=== PATIENT | male | born 1975 | race Caucasian/White ===

== ENCOUNTER 2021-05-16 04:22 | Emergency (ER) | payer OTHER ==
--- OUTSIDE RECORDS SUMMARY | 2021-05-16 04:24 | XMS REPORT | Continuity of Care Document ---
:1975 Author Organization [facility] t Address [address] [place] [address] Care Team Providers Name Role Phone Doctor Unassigned, Name Attending Clinician Unavailable Charisse Linton Attending Clinician Anibal MANGLE TENDER CLOTH Attending Clinician Scott MANGLE TENDER CLOTH, F Attending Clinician Pcp, Does Not Have A Attending Clinician Harry VAZ, E Attending Clinician Problems This patient has no known problems. Allergies, Adverse Reactions, Alerts This patient has no known allergies or adverse reactions. Medications This patient has no known medications. Procedures This patient has no known procedures. Encounters Start End Encounter Admission Attending Care Care Encounter Source Date/Time Date/Time Type Type Clinicians Facility Department ID 2020-12-31 2020-12-31 Orders Doctor HERNANDEZ [id number] 00:00:00 00:00:00 Only UnassignedKE [id number] [facility] [id number] 2020-12-11 2020-12-12 Emergency Jean Marie Adams [facility] [id number] 21:36:00 00:30:00 Charisse Truong [id number] [place] [id number] [place] [id number] 2020-12-01 2020-12-01 [facility] [id number] 17:58:00 19:26:00 Blanca Truong [id number] [place] [id number] [place] [id number] 2020-12-01 2020-12-01 Orders Doctor HERNANDEZ [id number] 00:00:00 00:00:00 Only Unassigned, KE [id number] [facility] .[id number] [id number] 2020-07-27 2020-07-27 [facility] [id number] 00:09:00 01:47:00 Maximiliano Truong [id number] [place] [id number] [place] [id number] 2019-12-19 2019-12-19 Nurse MARY Pitts [id number] 00:00:00 00:00:00 Triage Patient KE [id number] Does Not HOSPITAL [id number] Have A [id number] 2019-12-19 2019-12-19 Nurse Viky Mcdonald [id number] 00:00:00 00:00:00 Triage E KE [id number] [facility]PITAL .[id number] [id number] Results This patient has no known results.
[2021-05-16 05:32] LABS: Absolute Lymphocytes (CBC) 0.9 K/uL (0.7-4.9); Basophils % 0.5 % (0-1.3); Hematocrit 46.4 % (39.6-49.0); Lymphocytes % 20.6 % (15.3-44.8); MPV 7.2 fL (7.6-11.3); RBC Red Blood Cell Count 5.46 M/uL (4.33-5.43)
[2021-05-16] MEDS ORDERED: ALBUTEROL INHALER 60 PUFF/8 GM IH ONE ×2 (05:37→05:47)
[2021-05-16] MEDS ORDERED: METHYLPREDNISOLONE 40 MG INJ ONE (05:37)
[2021-05-16] MEDS ORDERED: ACETAMINOPHEN 500 MG TAB ONE (05:37)
[2021-05-16] MEDS ORDERED: NA CHLORIDE 0.9% 3,000 ML ONE (05:38)
[2021-05-16 05:42] LABS: Protime INR 1.1
[2021-05-16 06:29] LABS: ALT/SGPT 46 U/L (12-78); AST/SGOT 45 U/L (15-37); Albumin 3.5 g/dL (3.4-5.0); Alkaline Phosphatase 48 U/L (45-117); Amylase 61 U/L (25-115); BUN Blood Urea Nitrogen 10 mg/dL (7-18); Bicarbonate 25 mmol/L (21-32); Bilirubin Direct 0.2 mg/dL (0-0.2); Bilirubin Total 0.4 mg/dL (0.2-1.0); Creatine Phosphokinase 390 U/L (39-308); Glucose Level 99 mg/dL (74-106); Lipase 242 U/L (73-393); Potassium 3.7 mmol/L (3.5-5.1); Protein, Total 7.4 g/dL (6.4-8.2); Sodium Level 136 mmol/L (136-145); Troponin (Emerg Dept Use Only) < 0.02 ng/mL (0.0-0.045)
[2021-05-16 06:30] LABS: CKMB Creatine Kinase MB < 1.0 ng/mL (1.0-3.6)
--- NOTE | 2021-05-16 07:17 | RAD REPORT ---
EXAM DESCRIPTION: CT - Chest For Pe Angio - 05/16/2021 7:02 am CLINICAL HISTORY: Shortness of breath COMPARISON: None. TECHNIQUE: Dynamically enhanced axial 3 mm thick images of the chest were obtained during administra tion of <100> mL Isovue 370 IV contrast. Coronal and oblique reconstruction images were generated and reviewed. Exam utilizes a protocol for optimal evaluation of pulmonary arterial tree. Maximum intensity projections 3D imaging was utilized All CT scans are performed using dose optimization technique as appropriate and may include automated exposure control or mA/KV adjustment according to patient size. FINDINGS: The opacification of pulmonary arteries is suboptimal. No gross pulmonary embolus seen. A thoracic aortic aneurysm is not noted. Bovine aorta A pleural effusion is not seen. A pericardial effusion is not seen. Minimal bilateral ground-glass opacities within the lungs. Fatty liver IMPRESSION: No gross evidence for a pulmonary embolism. Minimal bilateral ground-glass opacities within the lungs. This may represent a minimal bilateral Cov id pneumonia
--- NOTE | 2021-05-16 07:17 | RAD REPORT ---
EXAM DESCRIPTION: Anthony Single View05/16/2021 5:21 am CLINICAL HISTORY: Shortness of breath COMPARISON: none FINDINGS: The lungs are minimally hazy bilateral. The heart is normal size IMPRESSION: Lungs are minimally hazy bilaterally which may indicate a minimal pneumonia
[2021-05-16 08:04] LABS: Urine Blood Trace-lysed (Negative); Urine Glucose Negative (Negative); Urine Protein 1+ (Negative); Urine pH 5.5 (5.0-7.0)
[2021-05-16 09:01] LABS: Urine Bacteria <20 /HPF (NONE SEEN); Urine RBC <5 /HPF (NONE SEEN)
[2021-05-16] MEDS ORDERED: AZITHROMYCIN 250 MG TAB ONE (09:18)
[2021-05-16] MEDS ORDERED: ASPIRIN 81 MG CHEWABLE TABLET ONE (09:18)
[2021-05-16] MEDS ORDERED: CEFTRIAXONE/SWI 1gm 1 GM/10 ML SYR ONE (09:19)
[2021-05-16] MEDS ORDERED: FAMOTIDINE 20 MG TAB ONE (09:19)
--- NOTE | 2021-05-16 09:22 | ER ---
Nurse's Notes [facility] Name: Todd López Age: 45 yrs Sex: Male : 1975 Arrival Date: 05/16/2021 Time: 04:24 Bed 18 Private MD: Diagnosis: Pneumonia due to SARS-associated coronavirus;Coronavirus infection, unspecified;Fever, unspecified Presentation: 05/16 04:34 Chief complaint: Patient states: diagnosed with covid 2 days ago, reports shortness of kg breath, fever, diarrhea. Coronavirus screen: diarrhea, Client presents with at least one sign or symptom that may indicate coronavirus-19. Standard/surgical mask placed on the client. Provider contacted for isolation considerations. Ebola Screen: Patient negative for fever greater than or equal to 101.5 degrees Fahrenheit, and additional compatible Ebola Virus Disease symptoms Patient denies exposure to infectious person. Patient denies travel to an Ebola-affected area in the 21 days before illness onset. No symptoms or risks identified at this time. Initial Sepsis Screen: Does the patient meet any 2 criteria? HR > 90 bpm. No. Patient's initial sepsis screen is negative. Does the patient have a suspected source of infection? Yes: Productive cough/pneumonia. Risk Assessment: Do you want to hurt yourself or someone else? Patient reports no desire to harm self or others. Onset of symptoms was May 16, 2021. 04:34 Method Of Arrival: Wheelchair kg 04:34 Acuity: RENAE 3 kg Historical: - Allergies: 04:38 pine products; kg 04:38 Chocolate; kg 04:38 Kxfa-Cysnrp-Ozsy; kg 04:38 Latex, Natural Rubber; kg 04:38 nut.soy,wcgpkfg-RLC-rug-epa-in; kg - PMHx: 04:38 Asthma; ptsd; kg - Immunization history:: Client reports having NOT received the Covid vaccine. - Social history:: Smoking status: Patient denies any tobacco usage or history of. Screenin:05 Abuse screen: Denies threats or abuse. Denies injuries from another. Nutritional ms4 screening: No deficits noted. Tuberculosis screening: No symptoms or risk factors identified. Fall Risk None identified. Assessment: 06:04 Reassessment: Patient appears in no apparent distress at this time. No changes from ms4 previously documented assessment. Patient and/or family updated on plan of care and expected duration. Pain level reassessed. General: Appears in no apparent distress. Behavior is calm, cooperative. Pain: Denies pain. GI: Reports diarrhea. 07:00 General: Appears in no apparent distress. Behavior is calm, cooperative. Neuro: Level rb3 of Consciousness is awake, alert, obeys commands, Oriented to person, place, time, situation. Cardiovascular: Patient's skin is warm and dry. Respiratory: Airway is patent Respiratory effort is even, unlabored, Respiratory pattern is regular, symmetrical. 08:00 Reassessment: Patient appears in no apparent distress at this time. Neuro: Reports rb3 headache Was given Tylenol around 0520 this morning. 08:40 Reassessment: Waiting for Dr. Louie to speak with the pt before signing consent. rb3 09:00 Reassessment: Patient appears in no apparent distress at this time. Patient and/or rb3 family updated on plan of care and expected duration. Pain level reassessed. Patient is alert, oriented x 3, equal unlabored respirations, skin warm/dry/pink. 10:00 Reassessment: Patient appears in no apparent distress at this time. No changes from rb3 previously documented assessment. 11:00 Reassessment: Patient appears in no apparent distress at this time. Patient and/or rb3 family updated on plan of care and expected duration. Pain level reassessed. Patient is alert, oriented x 3, equal unlabored respirations, skin warm/dry/pink. Patient denies pain at this time. 12:00 Reassessment: Patient appears in no apparent distress at this time. No changes from rb3 previously documented assessment. 12:30 Reassessment: Patient appears in no apparent distress at this time. No signs of adverse rb3 reactions to the infusion. Vital Signs: 04:34 BP 124 / 73; Pulse 98; Resp 22; Temp 103.1(O); Pulse Ox 95% on R/A; Weight 108.86 kg; kg Height 5 ft. 8 in. (172.72 cm); Pain 6/10; 06:04 BP 123 / 61; Pulse 93; Resp 22; Pulse Ox 94% ; ms4 06:47 BP 118 / 85; Pulse 87; Resp 18; Temp 100; Pulse Ox 97% ; Pain 0/10; ms4 08:00 BP 119 / 64; Pulse 87; Resp 21; Temp 98.4; Pulse Ox 97% on R/A; rb3 09:00 BP 122 / 68; Pulse 76; Resp 19; Pulse Ox 95% ; rb3 10:00 BP 134 / 81; Pulse 75; Resp 20; Pulse Ox 97% ; rb3 11:00 BP 130 / 75; Pulse 67; Resp 18; Pulse Ox 97% ; rb3 12:00 BP 125 / 76; Pulse 73; Resp 19; Temp 98.4; Pulse Ox 96% on R/A; rb3 04:34 Body Mass Index 36.49 (108.86 kg, 172.72 cm) kg ED Course: 04:24 Patient arrived in ED. bp1 04:38 Triage completed. kg 04:38 Arm band placed on. kg 04:41 Emile Cleveland MD is Attending Physician. mh7 05:21 Chest Single View XRAY In Process Unspecified. EDMS 05:30 Inserted saline lock: 20 gauge in right forearm, using aseptic technique. Blood oe collected. 07:00 Patient has correct armband on for positive identification. Bed in low position. Call rb3 light in reach. Side rails up X 1. manager monitoring on. Pulse ox on. NIBP on. 07:02 CT Chest For PE Angio In Process Unspecified. EDMS 07:20 Robinson Hoffman, RN is Primary Nurse. em 07:38 Attending Physician role handed off by Emile Cleveland MD jose 07:38 Dima Louie MD is Attending Physician. jose 07:51 Alexandra Eubanks, RN is Primary Nurse. rb3 09:22 Josias Sanches MD is Referral Physician. jose 12:44 No provider procedures requiring assistance completed. IV discontinued, intact, rb3 bleeding controlled, No redness/swelling at site. Pressure dressing applied. Administered Medications: 05:35 Drug: Acetaminophen 1000 mg Route: PO; ms4 06:03 Follow up: Response: No adverse reaction ms4 05:35 Drug: SOLU-Medrol (methylPrednisoLONE) 80 mg Route: IVP; Site: right antecubital; ms4 06:03 Follow up: Response: No adverse reaction ms4 05:35 Drug: Albuterol HFA Inhaler 2 puffs Route: Inhalation; ms4 05:40 Drug: NS 0.9% (30 ml/kg) 30 ml/kg Route: IV; Rate: bolus; Site: right antecubital; ms4 08:04 Follow up: IV Status: Completed infusion rb3 09:00 Drug: Zithromax (azithromycin) 500 mg Route: PO; rb3 09:30 Follow up: Response: No adverse reaction rb3 09:00 Drug: Rocephin (cefTRIAXone) 1 grams Route: IV; Rate: per protocol; Site: right forearm;rb3 09:15 Follow up: Response: No adverse reaction; IV Status: Completed infusion rb3 09:00 Drug: Pepcid (famotidine) 40 mg Route: PO; rb3 09:30 Follow up: Response: No adverse reaction rb3 09:00 Drug: Aspirin Chewable Tablet 324 mg Route: PO; rb3 09:30 Follow up: Response: No adverse reaction rb3 10:10 Drug: REGEN-COV Dose Pack 120 mg/mL-120 mg/mL (EUA) 1 vials Route: IV; Rate: per iw protocol; Site: right forearm; 11:26 Follow up: IV Status: Completed infusion rb3 Outcome: 09:22 Discharge ordered by . [facility] 12:44 Patient left the ED. rb3 12:44 Discharged to home via wheelchair. rb3 12:44 Condition: stable 12:44 Discharge instructions given to patient, Instructed on discharge instructions, follow up and referral plans. medication usage, Demonstrated understanding of instructions, follow-up care, medications, Prescriptions given X x 5 Signatures: Dispatcher [employer] Dima Issa MD MD cha Munoz, Edgar RN Roberta Patton RN RN Christos Chou Brittany bp1 Holmes, Maurice, MD MD 7 Alexandra Eubanks RN RN rb3 Susan Unger RN RN kg Joyce Redmond RN RN ms4 Corrections: (The following items were deleted from the chart) 13:36 13:15 Patient left the ED. rb3 rb3 13:50 12:00 BP 125 / 76; Pulse 73bpm; Resp 19bpm; Pulse Ox 96% RA; rb3 rb3
--- NOTE | 2021-05-16 09:22 | EDPHYS ---
Physician Documentation [facility] Name: Todd López Age: 45 yrs Sex: Male : 1975 Arrival Date: 05/16/2021 Time: 04:24 Bed 18 Private MD: ED Physician Dima Louie HPI: 05/16 04:52 This 45 yrs old Male presents to ER via Wheelchair with complaints of Fever, mh7 Diarrhea, Shortness Of Breath. 04:52 The patient reports fever, not measured (subjective). mh7 04:52 Onset: The symptoms/episode began/occurred 5 day(s) ago. Modifying factors: there are mh7 no obvious modifying factors. Associated signs and symptoms: Pertinent positives: cough, that is dry, diarrhea, myalgias, shortness of breath, Pertinent negatives: abdominal pain, altered mental status, arthralgias, backache, chest pain, chills, pulling at ears, earache, headache, hemoptysis, nausea, night sweats, runny nose, sinus congestion, sinus drainage, skin rash, sore throat, swelling, vomiting. Severity of symptoms: At their worst the symptoms were moderate 2 day(s) ago, in the emergency department the symptoms are unchanged. Patient reports that he recently tested positive for Covid.. Historical: - Allergies: 04:38 pine products; kg 04:38 Chocolate; kg 04:38 Aktb-Askslf-Wqcn; kg 04:38 Latex, Natural Rubber; kg 04:38 nut.soy,kvbiszo-TKR-myn-epa-in; kg - PMHx: 04:38 Asthma; ptsd; kg - Immunization history:: Client reports having NOT received the Covid vaccine. - Social history:: Smoking status: Patient denies any tobacco usage or history of. ROS: 04:52 Eyes: Negative for injury, pain, redness, and discharge, ENT: Negative for injury, mh7 pain, and discharge, Neck: Negative for injury, pain, and swelling, Cardiovascular: Negative for chest pain, palpitations, and edema, Back: Negative for injury and pain, : Negative for injury, bleeding, discharge, and swelling, MS/Extremity: Negative for injury and deformity, Skin: Negative for injury, rash, and discoloration, Neuro: Negative for headache, weakness, numbness, tingling, and seizure, Psych: Negative for depression, anxiety, suicide ideation, homicidal ideation, and hallucinations, Allergy/Immunology: Negative for hives, rash, and allergies, Endocrine: Negative for neck swelling, polydipsia, polyuria, polyphagia, and marked weight changes, Hematologic/Lymphatic: Negative for swollen nodes, abnormal bleeding, and unusual bruising. Exam: 04:52 Head/Face: Normocephalic, atraumatic. Eyes: Pupils equal round and reactive to light, mh7 extra-ocular motions intact. Lids and lashes normal. Conjunctiva and sclera are non-icteric and not injected. Cornea within normal limits. Periorbital areas with no swelling, redness, or edema. Neck: Trachea midline, no thyromegaly or masses palpated, and no cervical lymphadenopathy. Supple, full range of motion without nuchal rigidity, or vertebral point tenderness. No Meningismus. Chest/axilla: Normal chest wall appearance and motion. Nontender with no deformity. No lesions are appreciated. Cardiovascular: Regular rate and rhythm with a normal S1 and S2. No gallops, murmurs, or rubs. Normal PMI, no JVD. No pulse deficits. 04:52 Abdomen/GI: Soft, non-tender, with normal bowel sounds. No distension or tympany. No guarding or rebound. No evidence of tenderness throughout. Back: No spinal tenderness. No costovertebral tenderness. Full range of motion. Skin: Warm, dry with normal turgor. Normal color with no rashes, no lesions, and no evidence of cellulitis. MS/ Extremity: Pulses equal, no cyanosis. Neurovascular intact. Full, normal range of motion. Neuro: Awake and alert, GCS 15, oriented to person, place, time, and situation. Cranial nerves II-XII grossly intact. Motor strength 5/5 in all extremities. Sensory grossly intact. Cerebellar exam normal. Normal gait. Psych: Awake, alert, with orientation to person, place and time. Behavior, mood, and affect are within normal limits. 04:52 Constitutional: The patient appears in no acute distress, alert, awake, uncomfortable. 04:52 Respiratory: the patient does not display signs of respiratory distress, Respirations: normal, Breath sounds: rhonchi, that are mild, are scattered, Respiratory rate: 20 08:18 ECG was reviewed by the Attending Physician. [facility] Vital Signs: 04:34 BP 124 / 73; Pulse 98; Resp 22; Temp 103.1(O); Pulse Ox 95% on R/A; Weight 108.86 kg; kg Height 5 ft. 8 in. (172.72 cm); Pain 6/10; 06:04 BP 123 / 61; Pulse 93; Resp 22; Pulse Ox 94% ; ms4 06:47 BP 118 / 85; Pulse 87; Resp 18; Temp 100; Pulse Ox 97% ; Pain 0/10; ms4 08:00 BP 119 / 64; Pulse 87; Resp 21; Temp 98.4; Pulse Ox 97% on R/A; rb3 09:00 BP 122 / 68; Pulse 76; Resp 19; Pulse Ox 95% ; rb3 10:00 BP 134 / 81; Pulse 75; Resp 20; Pulse Ox 97% ; rb3 11:00 BP 130 / 75; Pulse 67; Resp 18; Pulse Ox 97% ; rb3 12:00 BP 125 / 76; Pulse 73; Resp 19; Temp 98.4; Pulse Ox 96% on R/A; rb3 04:34 Body Mass Index 36.49 (108.86 kg, 172.72 cm) kg MDM: 07:17 Transition of care: After a detail discussion of the patient's case, care is [facility] transferred to Dima Louie MD. 07:39 Patient medically screened. [facility] 08:07 Differential diagnosis: viral Infection, bacterial infection, URI, bronchitis, jose pneumonia UTI. Data reviewed: vital signs, nurses notes, lab test result(s), EKG, radiologic studies, CT scan, plain films. Data interpreted: school bus monitor: rate is 105 beats/min, rhythm is regular. Test interpretation: by ED physician or midlevel provider: ECG, plain radiologic studies. Counseling: I had a detailed discussion with the patient and/or guardian regarding: the historical points, exam findings, and any diagnostic results supporting the discharge/admit diagnosis, lab results, radiology results, the need for outpatient follow up, for definitive care, a family practitioner, a clinical rn liaison. 05/16 04:43 Order name: Amylase, Serum [facility] 05/16 04:43 Order name: Basic Metabolic Panel [facility] 05/16 04:43 Order name: Blood Culture Adult (2) [facility] 05/16 04:43 Order name: C-Reactive Protein [facility] 05/16 04:43 Order name: CBC with Diff [facility] 05/16 04:43 Order name: CPK [facility] 05/16 04:43 Order name: Ckmb [facility] 05/16 04:43 Order name: LFT's [facility] 05/16 04:43 Order name: Lactate [facility] 05/16 04:43 Order name: Lipase [facility] 05/16 04:43 Order name: Procalcitonin; Complete Time: 07:04 [facility] 05/16 04:43 Order name: Protime (+inr); Complete Time: 05:47 [facility] 05/16 04:43 Order name: Ptt, Activated; Complete Time: 05:47 [facility] 05/16 04:43 Order name: Troponin (emerg Dept Use Only); Complete Time: 06:32 [facility] 05/16 04:43 Order name: Urine Microscopic Only [facility] 05/16 04:43 Order name: Chest Single View XRAY; Complete Time: 07:39 [facility] 05/16 04:43 Order name: Amylase; Complete Time: 06:32 EDMS 05/16 04:43 Order name: Basic Metabolic Panel; Complete Time: 06:32 EDMS 05/16 04:44 Order name: Blood Culture [facility] 05/16 04:44 Order name: C-Reactive Protein; Complete Time: 06:32 EDMS 05/16 04:44 Order name: CBC with Automated Diff; Complete Time: 05:40 MS 05/16 04:44 Order name: Creatine Phosphokinase; Complete Time: 06:32 EDMS 05/16 04:44 Order name: CKMB Creatine Kinase MB; Complete Time: 06:32 EDMS 05/16 04:44 Order name: Liver (Hepatic) Function; Complete Time: 06:32 EDMS 05/16 04:44 Order name: Lactate [facility] 05/16 04:44 Order name: Lipase; Complete Time: 06:32 EDMS 05/16 06:33 Order name: CT Chest For PE Angio; Complete Time: 07:39 7 05/16 08:04 Order name: Urine Dipstick-Ancillary; Complete Time: 08:04 EDMS 05/16 04:43 Order name: Accucheck; Complete Time: 06:03 [facility] 05/16 04:43 Order name: Cardiac monitoring; Complete Time: 05:40 [facility] 05/16 04:43 Order name: EKG - Nurse/Tech; Complete Time: 05:49 05/16 04:43 Order name: IV Saline Lock - Large Bore; Complete Time: 05:40 05/16 04:43 Order name: Labs collected and sent; Complete Time: 05:40 05/16 04:43 Order name: O2 Per Protocol; Complete Time: 05:40 05/16 04:43 Order name: O2 Sat Monitoring; Complete Time: 05:40 [facility] 05/16 04:43 Order name: Urine Dipstick-Ancillary (obtain specimen); Complete Time: 08:15 mh7 EC:18 Rate is 91 beats/min. Rhythm is regular. QRS [place] is Normal. [place] interval is normal. QRS jose interval is normal. QT interval is normal. No Q waves. T waves are Normal. No ST changes noted. Clinical impression: NSR w/ Non-specific ST/T Changes and No evidence of ischemia. Interpreted by me. Reviewed by me. Administered Medications: 05:35 Drug: Acetaminophen 1000 mg Route: PO; ms4 06:03 Follow up: Response: No adverse reaction ms4 05:35 Drug: SOLU-Medrol (methylPrednisoLONE) 80 mg Route: IVP; Site: right antecubital; ms4 06:03 Follow up: Response: No adverse reaction ms4 05:35 Drug: Albuterol HFA Inhaler 2 puffs Route: Inhalation; ms4 05:40 Drug: NS 0.9% (30 ml/kg) 30 ml/kg Route: IV; Rate: bolus; Site: right antecubital; ms4 08:04 Follow up: IV Status: Completed infusion rb3 09:00 Drug: Zithromax (azithromycin) 500 mg Route: PO; rb3 09:30 Follow up: Response: No adverse reaction rb3 09:00 Drug: Rocephin (cefTRIAXone) 1 grams Route: IV; Rate: per protocol; Site: right forearm;rb3 09:15 Follow up: Response: No adverse reaction; IV Status: Completed infusion rb3 09:00 Drug: Pepcid (famotidine) 40 mg Route: PO; rb3 09:30 Follow up: Response: No adverse reaction rb3 09:00 Drug: Aspirin Chewable Tablet 324 mg Route: PO; rb3 09:30 Follow up: Response: No adverse reaction rb3 10:10 Drug: REGEN-COV Dose Pack 120 mg/mL-120 mg/mL (EUA) 1 vials Route: IV; Rate: per iw protocol; Site: right forearm; 11:26 Follow up: IV Status: Completed infusion rb3 Disposition Summary: 05/16/21 09:22 Discharge Ordered Location: Home [facility] Problem: new jose Symptoms: have improved jose Condition: Stable jose Diagnosis - Pneumonia due to SARS-associated coronavirus jose - Coronavirus infection, unspecified jose - Fever, unspecified jose Followup: jose - With: Private Physician - When: 2 - 3 days - Reason: Recheck today's complaints, Continuance of care, Re-evaluation by your physician Followup: jose - With: - When: 2 - 3 days - Reason: Recheck today's complaints, Re-evaluation by your physician Discharge Instructions: - Fever, Adult jose - Upper Respiratory Infection, Adult [facility] - Discharge Summary Sheet em - Viral Respiratory Infection, Kemr-Ud-Feuh [facility] - Aspirin and Your Heart [facility] - COVID-19 [facility] Forms: - Medication Reconciliation Form jose - Thank You Letter [facility] - Antibiotic Education [facility] - SBAR form em - Prescription Opioid Use [facility] Prescriptions: - albuterol sulfate 90 mcg/actuation Inhalation HFA aerosol inhaler - inhale 2 puff by INHALATION route every 4-6 hours; 1 Pump; Refills: 0, Product [facility] Selection Permitted - dexamethasone 2 mg Oral tablet - take 1 tablet by ORAL route 3 times per day; 15 tablet; Refills: 0, Product [facility] Selection Permitted - ivermectin 3 mg Oral tablet - take 4 tablet by ORAL route once daily; 20 tablet; Refills: 0, Product [facility] Selection Permitted - Pepcid 20 mg Oral Tablet - take 1 tablet by ORAL route every 12 hours for 15 days; 30 tablet; Refills: 0, [facility] Product Selection Permitted - Zithromax 500 mg Oral Tablet - take 1 tablet by ORAL route once daily for 5 days; 5 tablet; Refills: 0, [facility] Product Selection Permitted Signatures: Dispatcher [employer] Dima Issa MD MD cha Williams, Irene RN Emile Lyons MD MD mh7 Alexandra Eubanks RN RN rb3 Susan Unger RN RN kg Joyce Redmond RN RN ms4
[2021-05-16] MEDS ORDERED: CASIRIVIMAB/IMDEVIMAB 10 ML in NA CHLORIDE 0.9% 250 ML IV ONE (09:45)
[2021-05-16 13:24] VITALS: O2SAT 97
[2021-05-16 13:25] VITALS: BP 119/64; TEMP 98.4
== END 2021-05-16 13:15 | disposition home or self-care (01) ==
LOC: ER 04:22
DX: U07.1 COVID-19 (principal); J12.82 Pneumonia due to coronavirus disease 2019; Z91.012 Allergy to eggs; Z91.018 Allergy to other foods; Z91.040 Latex allergy status; Z91.048 Other nonmedicinal substance allergy status
CPT/HCPCS: 87040 ×2; 85025; 80048; 36415; 82150; 82550; 85610; 80076; 83605; 85730; 84484; 82553; 83690; 84145; 86140; 71275; 71045; 99285; Q9967; J0696; J7050; J7030; J2920; 81003; 81015

== ENCOUNTER 2023-08-29 10:54 | Emergency (ER) | payer OTHER ==
--- OUTSIDE RECORDS SUMMARY | 2023-08-29 10:59 | XMS REPORT | Continuity of Care Document ---
:1975 Author Organization [facility] t Address [address] [place] [address] Care Team Providers Name Role Phone [facility], [facility] ADMIN MED Primary Care Physician Unavailable Doctor Unassigned, Boyce Attending Clinician Unavailable Jean Marie Linton Attending Clinician Jean Marie MORTON Attending Clinician Unavailable Brown Velazquez Attending Clinician BROWN CHESTER Attending Clinician Unavailable Jordan Myrick Attending Clinician JORDAN PEREZ Attending Clinician Unavailable Pcp, Patient Does Not Have A Attending Clinician [id number] [phone] Viky Mcdonald RN Attending Clinician Jean Marie MORTON Admitting Clinician Unavailable Payers Payer Name Policy Type Policy Number Effective Date Expiration Date S ource Problems Condition Condition Condition Status Onset Resolution Last Treating Co mments Source Name Details Category Date Date Treatment Clinician Date No known No known Disease Unive rs active active ity of problems problems [facility] Allergies, Adverse Reactions, Alerts Allergy Allergy Status Severity Reaction(s) Onset Inactive Treating Comm ents Source Name Type Date Date Clinician EGG DRUG Active ITCHING Univers INGREDI 04-02 ity of 00:00: [address] Egg Propensi Active Itching 2018-0 Univers ty to 7-08 ity of adverse 00:00: [place] reaction 00 Medical s Branch MOLD DRUG Active Swelling 2016- Univers INGREDI 0-15 ity of 00:00: [place] 00 Medical Branch Mold Propensi Active Swelling 2016- Univer s ty to 0-15 ity of adverse 00:00: [place] reaction 00 Medical s Branch CHOCOLAT DRUG Active Hives 2015- Univers E FLAVOR INGREDI 8-07 ity of 00:00: [place] 00 Medical Branch LATEX DRUG Active Hives 2015-0 Univers INGREDI 8-07 ity of 00:00: [place] 00 Medical Branch TREE Food Active SOB 2015- Univers NUTS 8-07 ity of 00:00: [place] 00 Medical Branch Chocolat Propensi Active Hives 2015-0 Univer s e Flavor ty to 8-07 ity of adverse 00:00: [place] reaction 00 Medical s Branch Latex Propensi Active Hives 2015- Univers ty to 8-07 ity of adverse 00:00: [place] reaction Medical s Branch Tree Propensi Active Shortness of Un rafaela Nuts ty to Breath 8-07 ity of adverse 00:00: [place] reaction 00 [facility] Social History Social Habit Start Date Stop Date Quantity Comments Source Exposure to Not sure [facility] SARS-CoV-2 (event) [facility] Sex Assigned At [birth year] [facility] 00:00:00 00:00:00 [facility] Smoking Status Start Date Stop Date Source Unknown if ever smoked [facility] Medications Ordered Filled Start Stop Current Ordering Indication Dosage Frequency Signature Comments Components Source Medication Medication Date Date Medication? Clinician (SIG) Name Name naproxen Yes [id number] 500mg Take 1 Univers (NAPROSYN) 3-19 9107 tablet by ity of 500 mg 00:00: mouth 2 [place] tablet 00 (two) Medical times [place] daily with meals. naproxen Yes [id number] 500mg Take 1 Univers (NAPROSYN) 3-19 9107 tablet by ity of 500 mg 00:00: mouth 2 [place] tablet 00 (two) Medical times [place] daily with meals. HYDROcodone 2020- No 1{tbl} 1 tablet, Univers -acetaminop 12-02-09 Oral, ity of hen (NORCO 01:30: 00:55 ONCE, 1 [place] as 5) 5-325 mg 00 :00 dose, Mon Med ical tablet 1 12/01/20 at Branch tablet 1930, ABIODUN acetaminoph 2020- No 4647 1{tbl} Take 1 U nivers en-codeine 3-08 03-12 tablet by ity of (TYLENOL-CO 00:00: 05:59 [place] DE[place] #3) 00 :00 every 4 Medical 300-30 mg (four) Branch tablet hours as needed for Pain (scale 1-3) or Pain (scale 7-10) for up to 3 days. Indication s: acute pain HYDROcodone 2019-09- No 1{tbl} 1 tablet, Univers -acetaminop 09-26 Oral, ity of hen (NORCO) 08:30: 06:28 [place]CE[place] 1 [place] 10-325 mg 00 :00 dose, Sun Medic al tablet 1 07/27/20 at [facility] tablet 0230, Routine acetaminoph 2019-09- No 1000mg 1,000 mg, Univers en 09-26 Oral, ity of (TYLENOL) 06:45: 05:39 ONCE, 1 [place] tablet [place] :[place] dose, [place] [facility] 1,000 mg 07/27/20 at [facility] h 0145, Routine traMADoL 50 2019-09 Yes 4647 50mg Take 1 Univ ers mg tablet -01 tablet by ity o f 00:00: mouth [place] 00 every 6 Medical (six) Branch hours as needed for Pain (scale 7-10). Indication s: acute pain ibuprofen 2019-09 Yes [id number] 800mg Take 1 Univers 800 mg 1-01 tablet by ity of tablet 00:00: mouth [place] 00 every 6 Medical (six) Branch hours as needed for Pain (scale 4-6). traMADoL 50 2019-09 Yes [id number] 50mg Take 1 Univ ers mg tablet 1-01 tablet by ity o f 00:00: mouth [place] 00 every 6 Medical (six) Branch hours as needed for Pain (scale 7-10). Indication s: acute pain ibuprofen 2019-09 Yes [id number] 800mg Take 1 Univers 800 mg -01 tablet by ity of tablet 00:00: mouth [place] 00 every 6 Medical (six) Branch hours as needed for Pain (scale 4-6). traMADoL 50 2019- Yes 4647 50mg Take 1 Univ ers mg tablet 1-01 tablet by ity o f 00:00: mouth [place] 00 every 6 Medical (six) Branch hours as needed for Pain (scale 7-10). Indication s: acute pain ibuprofen 2019-09 Yes [id number] 800mg Take 1 Univers 800 mg 1-01 tablet by ity of tablet 00:00: mouth [place] 00 every 6 Medical (six) Branch hours as needed for Pain (scale 4-6). traMADoL 50 2019-09 Yes 4647 50mg Take 1 Univ ers mg tablet 1-01 tablet by ity o f 00:00: mouth [place] 00 every 6 Medical (six) Branch hours as needed for Pain (scale 7-10). Indication s: acute pain ibuprofen 2019-09 Yes [id number] 800mg Take 1 Univers 800 mg 1-01 tablet by ity of tablet 00:00: mouth [place] 00 every 6 Medical (six) Branch hours as needed for Pain (scale 4-6). traMADoL 50 2019-09 Yes [id number] 50mg Take 1 Univ ers mg tablet 1-01 tablet by ity o f 00:00: mouth [place] 00 every 6 Medical (six) Branch hours as needed for Pain (scale 7-10). Indication s: acute pain ibuprofen 2019-09 Yes [id number] 800mg Take 1 Univers 800 mg 1-01 tablet by ity of tablet 00:00: mouth [place] 00 every 6 Medical (six) Branch hours as needed for Pain (scale 4-6). albuterol 2020-0 Yes [id number] 2.5mg Inhale 3 Univers 2.5 mg /3 3-25 mL every 4 ity of mL (0.083 00:00: (four) [place] %) 00 hours as Medical nebulizer needed for Bran ch solution Wheezing, Shortness of Breath, Bronchospa sm or Chest tightness. albuterol 2020-0 Yes [id number] 2.5mg Inhale 3 Univers 2.5 mg /3 3-25 mL every 4 ity of mL (0.083 00:00: (four) [place] %) 00 hours as Medical nebulizer needed for Bran ch solution Wheezing, Shortness of Breath, Bronchospa sm or Chest tightness. albuterol 2020-0 Yes [id number] 2.5mg Inhale 3 Univers 2.5 mg /3 3-25 mL every 4 ity of mL (0.083 00:00: (four) [place] %) 00 hours as Medical nebulizer needed for Bran ch solution Wheezing, Shortness of Breath, Bronchospa sm or Chest tightness. albuterol 2020-0 Yes [id number] 2.5mg Inhale 3 Univers 2.5 mg /3 3-25 mL every 4 ity of mL (0.083 00:00: (four) [place] %) 00 hours as Medical nebulizer needed for Bran ch solution Wheezing, Shortness of Breath, Bronchospa sm or Chest tightness. albuterol 2020-0 Yes [id number] 2.5mg Inhale 3 Univers 2.5 mg /3 3-25 mL every 4 ity of mL (0.083 00:00: (four) [place] %) 00 hours as Medical nebulizer needed for Bran ch solution Wheezing, Shortness of Breath, Bronchospa sm or Chest tightness. albuterol 2020-0 Yes [id number] 2.5mg Inhale 3 Univers 2.5 mg /3 3-25 mL every 4 ity of mL (0.083 00:00: (four) [place] %) 00 hours as Medical nebulizer needed for Bran ch solution Wheezing, Shortness of Breath, Bronchospa sm or Chest tightness. ibuprofen Yes [id number] 800mg Take 1 Un rafaela 800 mg 4-17 tablet by ity of tablet 00:00: mouth [place] 00 every 8 Medical (eight) Branch hours. neomycin-po Yes [id number] 3[drp] Place 3 Univers lymyxin-hyd 4-17 Drops in ity of rocortisone 00:00: left ear 4 [place] 3.5-10,000- 00 (four) Medica l 1 times Branch mg/mL-unit/ daily. mL-% otic susp neomycin-po Yes [id number] 3[drp] Place 3 Univers lymyxin-hyd 4-17 Drops in ity of rocortisone 00:00: right ear [place] 3.5-10,000- 00 4 (four) Medi trevor 1 times Branch mg/mL-unit/ daily. mL-% otic susp ibuprofen Yes [id number] 800mg Take 1 Un rafaela 800 mg 4-17 tablet by ity of tablet 00:00: mouth [place] 00 every 8 Medical (eight) Branch hours. neomycin-po 2019-0 Yes [id number] 3[drp] Place 3 Univers lymyxin-hyd 4-17 Drops in ity of rocortisone 00:00: left ear 4 [place] 3.5-10,000- 00 (four) Medica l 1 times Branch mg/mL-unit/ daily. mL-% otic susp neomycin-po 2018- Yes [id number] 3[drp] Place 3 Univers lymyxin-hyd 4-17 Drops in ity of rocortisone 00:00: right ear [place] 3.5-10,000- 00 4 (four) Medi trevor 1 times Branch mg/mL-unit/ daily. mL-% otic susp ibuprofen 2018- Yes [id number] 800mg Take 1 Un rafaela 800 mg 4-17 tablet by ity of tablet 00:00: mouth [place] 00 every 8 Medical (eight) Branch hours. neomycin-po 2018-0 Yes [id number] 3[drp] Place 3 Univers lymyxin-hyd 4-17 Drops in ity of rocortisone 00:00: left ear 4 [place] 3.5-10,000- 00 (four) Medica l 1 times Branch mg/mL-unit/ daily. mL-% otic susp neomycin-po 2018- Yes [id number] 3[drp] Place 3 Univers lymyxin-hyd 4-17 Drops in ity of rocortisone 00:00: right ear [place] 3.5-10,000- 00 4 (four) Medi trevor 1 times Branch mg/mL-unit/ daily. mL-% otic susp ibuprofen 2018-0 Yes [id number] 800mg Take 1 Un rafaela 800 mg 4-17 tablet by ity of tablet 00:00: mouth [place] 00 every 8 Medical (eight) Branch hours. neomycin-po 2019-0 Yes [id number] 3[drp] Place 3 Univers lymyxin-hyd 4-17 Drops in ity of rocortisone 00:00: left ear 4 [place] 3.5-10,000- 00 (four) Medica l 1 times Branch mg/mL-unit/ daily. mL-% otic susp amoxicillin 2019-0 Yes [id number] 500mg Take 1 Univers 500 mg 4-17 capsule by ity of capsule 00:00: mouth 3 [place] 00 (three) Medical times Branch daily. neomycin-po 2019-0 Yes [id number] 3[drp] Place 3 Univers lymyxin-hyd 4-17 Drops in ity of rocortisone 00:00: right ear [place] 3.5-,000- 00 4 (four) Medi trevor 1 times Branch mg/mL-unit/ daily. mL-% otic susp ibuprofen 2018- Yes [id number] 800mg Take 1 Un ra[place]ael[place] 800 mg 4-17 tablet by ity of tablet 00:00: mouth [place] 00 every 8 Medical (eight) Branch hours. neomycin-po 2019-0 Yes [id number] 3[drp] Place 3 Univers lymyxin-hyd 4-17 Drops in ity of rocortisone 00:00: left ear 4 [place] 3.5-,- (four) Medica l 1 times Branch mg/mL-unit/ daily. mL-% otic susp amoxicillin Yes [id number] 500mg Take 1 Univers 500 mg 4-17 capsule by ity of capsule 00:00: mouth 3 [place] 00 (three) Medical times Branch daily. neomycin-po 2018- Yes [id number] 3[drp] Place 3 Univers lymyxin-hyd 4-17 Drops in ity of rocortisone 00:00: right ear [place] 3.5-,- 00 4 (four) Medi trevor 1 times Branch mg/mL-unit/ daily. mL-% otic susp ibuprofen 2018-0 Yes [id number] 800mg Take 1 Un ra[place] 800 mg 4-17 tablet by ity of tablet 00:00: mouth every 8 Medical (eight) Branch hours. neomycin-po 2018-0 Yes [id number] 3[drp] Place 3 Univers lymyxin-hyd 4-17 Drops in ity of rocortisone 00:00: left ear 4 [place] 3.5-,000- 00 (four) Medica l 1 times Branch mg/mL-unit/ daily. mL-% otic susp neomycin-po 2018-0 Yes [id number] 3[drp] Place 3 Univers lymyxin-hyd 4-17 Drops in ity of rocortisone 00:00: right ear [place] 3.5-,000- 00 4 (four) Medi trevor 1 times Branch mg/mL-unit/ daily. mL-% otic susp ibuprofen 2019- Yes [id number] 800mg Take 1 Un [place] 800 mg 4-17 tablet by ity of tablet 00:00: mouth [place] 00 every 8 Medical (eight) Branch hours. neomycin-po 2019-0 Yes [id number] 3[drp] Place 3 Univers lymyxin-hyd 4-17 Drops in ity of rocortisone 00:00: left ear 4 [place] 3.5-10,000- 00 (four) Medica l 1 times Branch mg/mL-unit/ daily. mL-% otic susp neomycin-po 2018- Yes [id number] 3[drp] Place 3 Univers lymyxin-hyd 4-17 Drops in ity of rocortisone 00:00: right ear [place] 3.5-10,000- 00 4 (four) Medi trevor 1 times Branch mg/mL-unit/ daily. mL-% otic susp ibuprofen 2018- Yes [id number] 800mg Take 1 Un [place] 800 mg 4-17 tablet by ity of tablet 00:00: mouth [place] 00 every 8 Medical (eight) Branch hours. neomycin-po 2018-0 Yes [id number] 3[drp] Place 3 Univers lymyxin-hyd 4-17 Drops in ity of rocortisone 00:00: left ear 4 [place] 3.5-10,000- 00 (four) Medica l 1 times Branch mg/mL-unit/ daily. mL-% otic susp neomycin-po 2018- Yes [id number] 3[drp] Place 3 Univers lymyxin-hyd 4-17 Drops in ity of rocortisone 00:00: right ear [place] 3.5-10,000- 00 4 (four) Medi trevor 1 times Branch mg/mL-unit/ daily. mL-% otic susp traMADOL 2018-0 Yes 50mg Take 1 Univers (ULTRAM) 50 7-08 tablet by ity of mg tablet 00:00: mouth [place] 00 every 6 Medical (six) Branch hours as needed for Pain (scale 4-6). traMADOL 2018-0 Yes 50mg Take 1 Univers (ULTRAM) 50 7-08 tablet by ity of mg tablet 00:00: mouth [place] 00 every 6 Medical (six) Branch hours as needed for Pain (scale 4-6). traMADOL 2018-0 Yes 50mg Take 1 Univers (ULTRAM) 50 7-08 tablet by ity of mg tablet 00:00: mouth [place] 00 every 6 Medical (six) Branch hours as needed for Pain (scale 4-6). traMADOL 2018-0 Yes 50mg Take 1 Univers (ULTRAM) 50 7-08 tablet by ity of mg tablet 00:00: mouth [place] 00 every 6 Medical (six) Branch hours as needed for Pain (scale 4-6). traMADOL 2018-0 Yes 50mg Take 1 Univers (ULTRAM) 50 7-08 tablet by ity of mg tablet 00:00: mouth [place] 00 every 6 Medical (six) Branch hours as needed for Pain (scale 4-6). traMADOL 2018-0 Yes 50mg Take 1 Univers (ULTRAM) 50 7-08 tablet by ity of mg tablet 00:00: mouth [place] 00 every 6 Medical (six) Branch hours as needed for Pain (scale 4-6). traMADOL 2018-0 Yes 50mg Take 1 Univers (ULTRAM) 50 7-08 tablet by ity of mg tablet 00:00: mouth [place] 00 every 6 Medical (six) Branch hours as needed for Pain (scale 4-6). traMADOL 2018-0 Yes 50mg Take 1 Univers (ULTRAM) 50 7-08 tablet by ity of mg tablet 00:00: mouth [place] 00 every 6 Medical (six) Branch hours as needed for Pain (scale 4-6). benzonatate 2016-09 Yes 200mg Take 1 Uni vers 200 mg 0-15 capsule by ity of capsule 00:00: mouth 3 [place] 00 (three) Medical times Branch daily as needed for Cough. albuterol 2016-09 Yes 2{puff} Inhale 2 U nivers 90 0-15 Puffs ity of mcg/actuati 00:00: every 4 [place] as on inhaler 00 (four) Medical hours as Branch needed for Wheezing or Shortness of Breath. benzonatate 2016-09 Yes 200mg Take 1 Uni vers 200 mg 0-15 capsule by ity of capsule 00:00: mouth 3 [place] 00 (three) Medical times Branch daily as needed for Cough. albuterol 2016-09 Yes 2{puff} Inhale 2 U nivers 90 0-15 Puffs ity of mcg/actuati 00:00: every 4 [place] as on inhaler 00 (four) Medical hours as Branch needed for Wheezing or Shortness of Breath. benzonatate 2016-09 Yes 200mg Take 1 Uni vers 200 mg 0-15 capsule by ity of capsule 00:00: mouth 3 (three) Medical times Branch daily as needed for Cough. albuterol 2016-09 Yes 2{puff} Inhale 2 U nivers 90 0-15 Puffs ity of mcg/actuati 00:00: every 4 [place] as on inhaler 00 (four) Medical hours as Branch needed for Wheezing or Shortness of Breath. azithromyci 2016-09 Yes 250mg Take 1 Uni vers n 250 mg 0-15 tablet by ity of tablet 00:00: mouth [place] 00 daily. Medical Branch benzonatate 2016-09 Yes 200mg Take 1 Uni vers 200 mg 0-15 capsule by ity of capsule 00:00: mouth 3 (three) Medical times Branch daily as needed for Cough. albuterol 2016-09 Yes 2{puff} Inhale 2 U nivers 90 0-15 Puffs ity of mcg/actuati 00:00: every 4 [place] as on inhaler 00 (four) Medical hours as Branch needed for Wheezing or Shortness of Breath. albuterol 2016-09 Yes 2.5mg Inhale 3 Uni vers 2.5 mg /3 0-15 mL every 4 ity of mL (0.083 00:00: (four) [place] %) 00 hours as Medical nebulizer needed for Bran ch solution Wheezing or Shortness of Breath. azithromyci 2016-09 Yes 250mg Take 1 Uni vers n 250 mg 0-15 tablet by ity of tablet 00:00: mouth 00 daily. Medical Branch benzonatate 2016-09 Yes 200mg Take 1 Uni vers 200 mg 0-15 capsule by ity of capsule 00:00: mouth 3 (three) Medical times Branch daily as needed for Cough. albuterol 2016-09 Yes 2{puff} Inhale 2 U nivers 90 0-15 Puffs ity of mcg/actuati 00:00: every 4 [place] as on inhaler 00 (four) Medical hours as Branch needed for Wheezing or Shortness of Breath. albuterol 2016-09 Yes 2.5mg Inhale 3 Uni vers 2.5 mg /3 0-15 mL every 4 ity of mL (0.083 00:00: (four) [place] %) 00 hours as Medical nebulizer needed for Bran ch solution Wheezing or Shortness of Breath. benzonatate 2016-09 Yes 200mg Take 1 Uni vers 200 mg 0-15 capsule by ity of capsule 00:00: mouth 3 (three) Medical times Branch daily as needed for Cough. albuterol 2016-09 Yes 2{puff} Inhale 2 U nivers 90 0-15 Puffs ity of mcg/actuati 00:00: every 4 [place] as on inhaler 00 (four) Medical hours as Branch needed for Wheezing or Shortness of Breath. benzonatate 2016-09 Yes 200mg Take 1 Uni vers 200 mg 0-15 capsule by ity of capsule 00:00: mouth 3 00 (three) Medical times Branch daily as needed for Cough. albuterol 2016-09 Yes 2{puff} Inhale 2 U nivers 90 0-15 Puffs ity of mcg/actuati 00:00: every 4 [place] as on inhaler 00 (four) Medical hours as Branch needed for Wheezing or Shortness of Breath. benzonatate 2016-09 Yes 200mg Take 1 Uni vers 200 mg 0-15 capsule by ity of capsule 00:00: mouth 3 (three) Medical times Branch daily as needed for Cough. albuterol 2016-09 Yes 2{puff} Inhale 2 U nivers 90 0-15 Puffs ity of mcg/actuati 00:00: every 4 [place] as on inhaler 00 (four) Medical hours as Branch needed for Wheezing or Shortness of Breath. ciprofloxac Yes 4[drp] Place 4 U nivers in-dexameth 8-07 Drops in ity of asone 00:00: left ear 2 [place] (CIPRODEX) 00 (two) Medical 0.3-0.1 % times Branch otic drops daily. traMADOL Yes 50mg Take 1 Univers (ULTRAM) 50 8-07 tablet by ity of mg tablet 00:00: mouth [place] 00 every 6 Medical (six) Branch hours as needed for Pain (scale 7-10). ciprofloxac 2015- Yes 4[drp] Place 4 U nivers in-dexameth 8-07 Drops in ity of asone 00:00: left ear 2 [place] (CIPRODEX) 00 (two) Medical 0.3-0.1 % times Branch otic drops daily. traMADOL 2016-0 Yes 50mg Take 1 Univers (ULTRAM) 50 8-07 tablet by ity of mg tablet 00:00: mouth [place] 00 every 6 Medical (six) Branch hours as needed for Pain (scale 7-10). ciprofloxac 2016-0 Yes 4[drp] Place 4 U nivers in-dexameth 8-07 Drops in ity of asone 00:00: left ear 2 [place] (CIPRODEX) 00 (two) Medical 0.3-0.1 % times Branch otic drops daily. traMADOL 2016-0 Yes 50mg Take 1 Univers (ULTRAM) 50 8-07 tablet by ity of mg tablet 00:00: mouth [place] 00 every 6 Medical (six) Branch hours as needed for Pain (scale 7-10). azithromyci 2016-0 Yes 250mg Take 1 Uni vers n 8-07 tablet by ity of (ZITHROMAX) 00:00: mouth [place] 250 mg 00 daily. Medical tablet Branch ciprofloxac 2016-0 Yes 4[drp] Place 4 U nivers in-dexameth 8-07 Drops in ity of asone 00:00: left ear 2 [place] (CIPRODEX) 00 (two) Medical 0.3-0.1 % times Branch otic drops daily. traMADOL 2016-0 Yes 50mg Take 1 Univers (ULTRAM) 50 8-07 tablet by ity of mg tablet 00:00: mouth [place] 00 every 6 Medical (six) Branch hours as needed for Pain (scale 7-10). azithromyci 2016-0 Yes 250mg Take 1 Uni vers n 8-07 tablet by ity of (ZITHROMAX) 00:00: mouth [place] 250 mg 00 daily. Medical tablet Branch ciprofloxac 2016-0 Yes 4[drp] Place 4 U nivers in-dexameth 8-07 Drops in ity of asone 00:00: left ear 2 [place] (CIPRODEX) 00 (two) Medical 0.3-0.1 % times Branch otic drops daily. traMADOL 2016-0 Yes 50mg Take 1 Univers (ULTRAM) 50 8-07 tablet by ity of mg tablet 00:00: mouth [place] 00 every 6 Medical (six) Branch hours as needed for Pain (scale 7-10). ciprofloxac 2016- Yes 4[drp] Place 4 U nivers in-dexameth 8-07 Drops in ity of asone 00:00: left ear 2 [place] (CIPRODEX) 00 (two) Medical 0.3-0.1 % times Branch otic drops daily. traMADOL 2015- Yes 50mg Take 1 Univers (ULTRAM) 50 8-07 tablet by ity of mg tablet 00:00: mouth [place] 00 every 6 Medical (six) Branch hours as needed for Pain (scale 7-10). ciprofloxac 2015- Yes 4[drp] Place 4 U nivers in-dexameth 8-07 Drops in ity of asone 00:00: left ear 2 [place] (CIPRODEX) 00 (two) Medical 0.3-0.1 % times Branch otic drops daily. traMADOL Yes 50mg Take 1 Univers (ULTRAM) 50 8-07 tablet by ity of mg tablet 00:00: mouth [place] 00 every 6 Medical (six) Branch hours as needed for Pain (scale 7-10). ciprofloxac 2015- Yes 4[drp] Place 4 U nivers in-dexameth 8-07 Drops in ity of asone 00:00: left ear 2 [place] (CIPRODEX) 00 (two) Medical 0.3-0.1 % times Branch otic drops daily. traMADOL Yes 50mg Take 1 Univers (ULTRAM) 50 8-07 tablet by ity of mg tablet 00:00: mouth [place] 00 every 6 Medical (six) Branch hours as needed for Pain (scale 7-10). Vital Signs Vital Name Observation Time Observation Value Comments Source Systolic blood 2020-12-12 05:03:24 142 mm[Hg] Univer sity of pressure [facility] Diastolic blood 2020-12-12 05:03:24 88 mm[facility]Hg[facility] 2020-12-12 05:03:24 83 /min [facility] Respiratory rate 2020-12-12 05:03:24 20 /min [facility] [place] [facility] in 2020-12-12 05:03:24 99 /min [facility] Arterial blood by [facility] Pulse oximetry Branch Body temperature 2020-12-12 02:33:00 37.33 Krystina Univ ersity of [place] [facility] [place] Body height 2020-12-12 02:33:00 170.2 cm [facility]i ty [facility] [place] [facility] Body weight 2020-12-12 02:33:00 104.327 kg [facility] ty [facility] [place] [facility] BMI 2020-12-12 02:33:00 36.02 kg/m2 Universi ty of [facility] Branch Systolic blood 2020-12-12 05:03:24 142 mm[Hg] Univer sity of pressure [place] [facility] Diastolic blood 2020-12-12 05:03:24 88 mm[Hg] Unive rsity of pressure [facility] Heart rate 2020-12-12 05:03:24 83 /min Universi ty of [facility] Respiratory rate 2020-12-12 05:03:24 20 /min Univ ersity of [facility] Oxygen saturation in 2020-12-12 05:03:24 99 /min University of Arterial blood by [facility] Pulse oximetry Branch Body temperature 2020-12-12 02:33:00 37.33 Krystina Univ ersity of [place] [facility] [place] Body height 2020-12-12 02:33:00 170.2 cm [facility]i ty [facility] [place] [facility] Body weight 2020-12-12 02:33:00 104.327 kg Universi ty of [facility] Branch BMI 2020-12-12 02:33:00 36.02 kg/m2 Universi ty of [facility] Branch Systolic blood 2020-12-02 00:02:00 142 mm[Hg] Univer sity of pressure [place] [facility] Diastolic blood 2020-12-02 00:02:00 86 mm[Hg] Unive rsity of pressure [place] [facility] Heart rate 2020-12-02 00:02:00 89 /min Universi ty of [facility] Branch Body temperature 2020-12-02 00:02:00 37.67 Krystina Univ ersity of [facility] Branch Respiratory rate 2020-12-02 00:02:00 18 /min Univ ersity of [facility] Branch Body height 2020-12-02 00:02:00 170.2 cm [facility]i ty [facility] [place] [facility] [place] Body weight 2020-12-02 00:02:00 102.059 kg [facility]i ty [facility] [place] [facility] BMI 2020-12-02 00:02:00 35.24 kg/m2 [facility] ty [facility] [place] [facility] Oxygen saturation in 2020-12-02 00:02:00 98 /min University of Arterial blood by [facility] trevor Pulse oximetry Branch Systolic blood 2020-12-02 00:02:00 142 mm[Hg] Univer sity of pressure [place] [facility] Diastolic blood 2020-12-02 00:02:00 86 mm[Hg] Unive rsity of pressure [place] [facility] Heart rate 2020-12-02 00:02:00 89 /min [facility] [place] [facility] Body temperature 2020-12-02 00:02:00 37.67 Krystina Univ [facility] [place] [facility] Respiratory rate 2020-12-02 00:02:00 18 /min Univ ersity [facility] [place] [facility] Body height 2020-12-02 00:02:00 170.2 cm [facility] [place] [facility] Body weight 2020-12-02 00:02:00 102.059 kg [facility] [place] [facility] BMI 2020-12-02 00:02:00 35.24 kg/m2 [facility] [place] [facility] Oxygen saturation in 2020-12-02 00:02:00 98 /min University of Arterial blood by [facility] Pulse oximetry Branch Systolic blood 2020-07-27 06:00:00 121 mm[Hg] Univer sity of pressure [place] [facility] Diastolic blood 2020-07-27 06:00:00 86 mm[Hg] Unive rsity of pressure [place] [facility] Heart rate 2020-07-27 06:00:00 72 /min [facility] Respiratory rate 2020-07-27 06:00:00 19 /min [facility] Oxygen saturation in 2020-07-27 06:00:00 99 /min [facility] Arterial blood by [facility] Pulse oximetry Branch Body temperature 2020-07-27 05:14:00 37.06 Krystina [facility] Body height 2020-07-27 05:14:00 170.2 cm [facility] Body weight 2020-07-27 05:14:00 104.327 kg [facility] BMI 2020-07-27 05:14:00 36.02 kg/m2 [facility] Systolic blood 2020-07-27 06:00:00 121 mm[Hg] Univer sity of pressure [facility] Diastolic blood 2020-07-27 06:00:00 86 mm[Hg] Unive rsity of pressure [facility] Heart rate 2020-07-27 06:00:00 72 /min [facility] Respiratory rate 2020-07-27 06:00:00 19 /min [facility] Oxygen saturation in 2020-07-27 06:00:00 99 /min [facility] Arterial blood by [facility] Pulse oximetry [place] Body temperature 2020-07-27 05:14:00 37.06 Krystina [facility] Body height 2020-07-27 05:14:00 170.2 cm [facility] Body weight 2020-07-27 05:14:00 104.327 kg [facility] BMI 2020-07-27 05:14:00 36.02 kg/m2 [facility] Procedures Procedure Date / Time Performing Clinician Source Performed AUTHORIZATION FOR 2020-12-31 05:01:00 Doctor Unassigned, [facility] Name [facility] XR FOOT 3+ VW LEFT 2020-12-12 04:10:08 Jean Marie Morton [facility] XR ANKLE 3+ VW LEFT 2020-12-02 00:47:57 Brown Chester [facility] XR FOOT <3 VW LEFT 2020-12-02 00:47:57 Brown Chester [facility] NOTICE OF PRIVACY 2020-12-01 23:54:46 Doctor Unassigned, No Univ [facility] PRACTICES Name [facility] CONSENT/REFUSAL FOR 2020-12-01 23:54:28 Doctor Unassigned, No [facility]AT[facility] Name [facility] [place] XR SHOULDER 2+ VW LEFT 2020-07-27 06:00:07 [facility] Start End Encounter Admission Attending Care Care Encounter Source Date/Time Date/Time Type Type Clinicians Facility Department ID 2020-12-31 2020-12-31 Orders Doctor HERNANDEZ 1.2.840.114 [id number] 00:00:00 00:00:00 Only UnassignedKE [id number] [facility] [id number] [id number] 2020-12-31 2020-12-31 Orders Doctor MARY 1.2.840.114 [id number] Univers 00:00:00 00:00:00 Only Unassigned, KE [id number] [facility] [id number] [place] [id number] [facility] 009 Branch 2020-12-11 2020-12-12 Emergency Selene, K [facility] 1.2.840.114 [id number] 21:36:00 00:30:00 Charisse Truong [id number] [place] [id number] [place] [id number] 2020-12-11 2020-12-12 Emergency Selene, K [facility] 1.2.840.114 [id number] Univers 21:36:00 00:30:00 Charisse Truong [id number] i ty of [place] [id number] [facility] [id number] [facility] 084 Branch 2020-12-11 2020-12-12 Emergency X SELENE, K [facility] ERT [id number] Univers 21:36:00 00:30:00 ity [facility] 2020-12-01 2020-12-01 Emergency Ebrahim, [facility] 1.2.840.114 [id number] 17:58:00 19:26:00 Brown Truong [id number] [place] [id number] [place] [id number] 2020-12-01 2020-12-01 Emergency Ebrahim, [facility] 1.2.840.114 [id number] Univers 17:58:00 19:26:00 Brown Truong [id number] i ty of [place] [id number] [facility] [id number] [place] [address] Branch 2020-12-01 2020-12-01 Emergency X EBRAHIM, [facility] ERT [id number] Univers 17:58:00 17:58:00 RANIA ity [facility] 2020-12-01 2020-12-01 Orders Doctor MARY 1.2.840.114 [id number] 00:00:00 00:00:00 Only Unassigned, KE [id number] [place] [facility] [id number] [id number] 2020-12-01 2020-12-01 Orders Doctor MARY 1.2.840.114 [id number] Univers 00:00:00 00:00:00 Only Unassigned, KE [id number] [facility] [place] [facility] [id number] [place] [id number] [address] 2020-07-27 2020-07-27 Emergency [facility] 1.2.840.114 [id number] 00:09:00 01:47:00 Jordan Elizabeth Truong [id number] [place] 4.2.7.2.686 [place] [id number] [facility] 2020-07-27 2020-07-27 [facility] 1.2.840.114 [id number] Univers 00:09:00 01:47:00 Chidibrigitte Elizabeth Truong [id number] ity of [place] 4.2.7.2.686 [facility] [id number] [address] 2020-07-27 2020-07-27 Emergency X [facility] ERT [id number] Univers 00:09:00 00:09:00 JORDAN ity [facility] 2019-12-19 2019-12-19 Nurse MARY Pitts 1.2.840.114 [id number] Univers 00:00:00 00:00:00 Triage Patient KE [id number] it y of [facility] [place] [facility] 4[place]2.7.2.686 [place] [id number] [address] 2019-12-19 2019-12-19 Nurse Viky Mcdonald 1.2.840.114 [id number] Univers 00:00:00 00:00:00 Triage E KE [id number] it y of HOSPITAL 4.2.7.2.686 [place] [id number] [address] 2019-12-19 2019-12-19 Nurse MARY Pitts 1.2.840.114 [id number] 00:00:00 00:00:00 Triage Patient KE [id number] Does Not HOSPITAL [id number] Have A [id number] 2019-12-19 2019-12-19 Nurse Viky Mcdonald 1.2.840.114 [id number] 00:00:00 00:00:00 Triage E KE [id number] [facility] [id number] [id number] Results This patient has no known results.
--- NOTE | 2023-08-29 11:48 | RAD REPORT ---
EXAM DESCRIPTION: RAD - Chest Single View - 08/29/2023 11:43 am CLINICAL HISTORY: COUGH COMPARISON: Chest Single View dated 05/16/2021 FINDINGS: Lines: None. Lungs: No evidence of edema or pneumonia. Minimal right middle lobe subsegmental atelectasis . Pleural: No significant pleural effusions or pneumothorax. Cardiac: The heart size is within normal limits. Mediastinum: Within normal limits. Bones: No acute fractures. Other: None IMPRESSION: No acute cardiopulmonary disease.
[2023-08-29 11:55] LABS: SARS-CoV-2 Antigen Rapid Res Negative (Negative)
--- NOTE | 2023-08-29 11:56 | EDPHYS ---
Physician Documentation [facility] Name: Todd López Age: 48 yrs Sex: Male : 1975 Arrival Date: 08/29/2023 Time: 10:54 Bed IW2 Private MD: ED Physician Burt León HPI: 08/29 11:14 This 48 yrs old Male presents to ER via Ambulatory with complaints of sp3 Shortness Of Breath, Flu Symptoms. 11:14 48-year-old male with history of asthma now presents with chief complaint subjective sp3 fever, cough, congestion, body aches for the last 5 days. He did note some possible sick contacts but negative travel history. He also denies neck pain, headache, chest pain, abdominal pain, vomiting, diarrhea, rash, bleeding, or any other signs or symptoms on ROS at this time.. Historical: - Allergies: 11:09 Chocolate; iw 11:09 Kbps-Bbumkd-Toks; iw 11:09 Latex; iw 11:09 nut.soy; iw 11:09 pine products; iw - PMHx: 11:09 Asthma; PTSD; iw - Immunization history:: Adult Immunizations not up to date, . - Social history:: Smoking status: Patient/guardian denies using tobacco, the patient reports quitting approximately 8 years ago. ROS: 11:15 Eyes: Negative for injury, pain, redness, and discharge, Neck: Negative for injury, sp3 pain, and swelling, Cardiovascular: Negative for chest pain, palpitations, and edema, Abdomen/GI: Negative for abdominal pain, nausea, vomiting, diarrhea, and constipation, Back: Negative for injury and pain, MS/Extremity: Negative for injury and deformity, Skin: Negative for injury, rash, and discoloration, Neuro: Negative for headache, weakness, numbness, tingling, and seizure, Psych: Negative for depression, anxiety, suicide ideation, homicidal ideation, and hallucinations, Allergy/Immunology: Negative for hives, rash, and allergies, Endocrine: Negative for neck swelling, polydipsia, polyuria, polyphagia, and marked weight changes, Hematologic/Lymphatic: Negative for swollen nodes, abnormal bleeding, and unusual bruising, 11:15 All other systems are negative, Exam: 11:15 Constitutional: This is a well developed, well nourished patient who is awake, alert, sp3 and in no acute distress. Head/Face: Normocephalic, atraumatic. Eyes: Pupils equal round and reactive to light, extra-ocular motions intact. Lids and lashes normal. Conjunctiva and sclera are non-icteric and not injected. Cornea within normal limits. Periorbital areas with no swelling, redness, or edema. ENT: Nares patent. No nasal discharge, no septal abnormalities noted. External auditory canals are clear. Oropharynx with no redness, swelling, or masses, exudates, or evidence of obstruction, uvula midline. Mucous membranes moist. Neck: Trachea midline, no thyromegaly or masses palpated, and no cervical lymphadenopathy. Supple, full range of motion without nuchal rigidity, or vertebral point tenderness. No Meningismus. Chest/axilla: Normal chest wall appearance and motion. Nontender with no deformity. No lesions are appreciated. Cardiovascular: Regular rate and rhythm with a normal S1 and S2. No gallops, murmurs, or rubs. Normal PMI, no JVD. No pulse deficits. Abdomen/GI: Soft, non-tender, with normal bowel sounds. No distension or tympany. No guarding or rebound. No evidence of tenderness throughout. Back: No spinal tenderness. No costovertebral tenderness. Full range of motion. Skin: Warm, dry with normal turgor. Normal color with no rashes, no lesions, and no evidence of cellulitis. 11:15 Respiratory: Active dry cough, Vital Signs: 11:08 BP 125 / 85; Pulse 99; Resp 19; Temp 99; Pulse Ox 97% on R/A; iw MDM: 11:14 Patient medically screened. sp3 11:15 Data reviewed: vital signs, nurses notes, lab test result(s), radiologic studies. ED sp3 course: 48-year-old male with URI symptoms. Differential diagnosis is broad and includes viral syndrome, pneumonia, COVID-19, influenza, among others. I am not highly suspicious for acute coronary syndrome, sepsis, shock or any other critical pathology at this time. Will obtain swabs and chest x-ray and disposition based on indicated care.. 11:56 ED course: Flu a positive. He is outside the window of Tamiflu. We will safely sp3 discharge him home at this time with general precautions and supportive care.. 08/29 11:06 Order name: SARS RAPID; Complete Time: 11:56 sp3 08/29 11:06 Order name: Flu; Complete Time: 11:55 sp3 08/29 11:10 Order name: CXR XRAY; Complete Time: 11:55 sp3 Administered Medications: No medications were administered Disposition Summary: 08/29/23 11:56 Discharge Ordered Notes: Location: Home sp3 Condition: Stable sp3 Diagnosis - Influenza sp3 Discharge Instructions: - Discharge Summary Sheet sp3 - Influenza, Adult sp3 Forms: - Medication Reconciliation Form sp3 - Thank You Letter sp3 - Antibiotic Education sp3 - Prescription Opioid Use sp3 - Patient Portal Instructions sp3 - Leadership Thank You Letter sp3 - Family Work Release bc6 Signatures: Dispatcher [employer] Roberta Tom RN RN iw Patel, Setul, MD MD sp3
--- NOTE | 2023-08-29 11:56 | ER ---
Nurse's Notes [facility] Name: Todd López Age: 48 yrs Sex: Male : 1975 Arrival Date: 08/29/2023 Time: 10:54 Bed IW2 Private MD: Diagnosis: Influenza Presentation: 08/29 11:08 Chief complaint: Patient states: SOB, cough, fever, felt dehydrated , hx of asthma , iw since Aug 25. Coronavirus screen: Client presents with at least one sign or symptom that may indicate coronavirus-19. Ebola Screen: Patient negative for fever greater than or equal to 101.5 degrees Fahrenheit, and additional compatible Ebola Virus Disease symptoms Patient denies exposure to infectious person. Patient denies travel to an Ebola-affected area in the 21 days before illness onset. No symptoms or risks identified at this time. 11:08 Method Of Arrival: Ambulatory iw 11:09 Initial Sepsis Screen: Does the patient meet any 2 criteria? No. Patient's initial iw sepsis screen is negative. Does the patient have a suspected source of infection? No. Patient's initial sepsis screen is negative. Risk Assessment: Do you want to hurt yourself or someone else? Patient reports no desire to harm self or others. Onset of symptoms was August 25, 2023. 11:09 Acuity: RENAE 3 iw Historical: - Allergies: 11:09 Chocolate; iw 11:09 Dfeg-Qckpkc-Smlh; iw 11:09 Latex; iw 11:09 nut.soy; iw 11:09 pine products; iw - PMHx: 11:09 Asthma; PTSD; iw - Immunization history:: Adult Immunizations not up to date, . - Social history:: Smoking status: Patient/guardian denies using tobacco, the patient reports quitting approximately 8 years ago. Vital Signs: 11:08 BP 125 / 85; Pulse 99; Resp 19; Temp 99; Pulse Ox 97% on R/A; iw ED Course: 10:59 Patient arrived in ED. mg5 10:59 Burt León MD is Attending Physician. sp3 11:09 Triage completed. iw 11:10 Arm band placed on. iw 11:44 CXR XRAY In Process Unspecified. EDMS 12:20 Roberta العراقي, RN is Primary Nurse. iw Administered Medications: No medications were administered Outcome: 11:56 Discharge ordered by MD. glynn 12:20 Patient left the ED. iw Signatures: Dispatcher [employer] Roberta Tom RN RN iw Burt León MD MD sp3 Bobbi Hinojosa mg5 Corrections: (The following items were deleted from the chart) 11:09 11:08 Chief complaint: Patient states: SOB, cough, fever, felt dehydrated , hx of iw asthma iw
[2023-08-29 12:24] VITALS: BP 125/85; TEMP 99; O2SAT 97
== END 2023-08-29 12:20 | disposition home or self-care (01) ==
LOC: ER 10:54
DX: J11.1 Influenza due to unidentified influenza virus with other respiratory manifestations (principal); Z11.52 Encounter for screening for COVID-19; Z91.012 Allergy to eggs; Z91.018 Allergy to other foods; Z91.040 Latex allergy status
CPT/HCPCS: 36415; 71045; 87804; 87811; 99281